=== PATIENT | male | born 1990 ===

== ENCOUNTER → 2024-08-05 | Emergency (ER) | payer SELFPAY ==
[~2024-08-05] VITALS: Ht 177.8 cm; Wt 109.1 kg
[2024-08-05 21:56] VITALS: BP 186/101; PULSE 112; RESP 20; TEMP 98.5; O2SAT 99
== END ==
LOC: ER 20:47
DX: Z02.89 Encounter for other administrative examinations (principal); Z91.012 Allergy to eggs; Z91.018 Allergy to other foods; V98.8XXA Other specified transport accidents, initial encounter; Y93.89 Activity, other specified; Y92.89 Other specified places as the place of occurrence of the external cause; Y99.8 Other external cause status
CPT/HCPCS: 99283